=== PATIENT | female | born 1995 ===

== ENCOUNTER 2016-09-26 17:12 | Emergency (ER) | payer MEDICAID ==
[2016-09-26 17:13] VITALS: BMI 42.2
[2016-09-26 17:22] VITALS: BP 120/78; PULSE 78; RESP 18; TEMP 98.4; O2SAT 99
--- NOTE | 2016-09-26 17:54 | ED PDOC ---
HPI: Abdomen Time Seen by Provider: 09/26/16 17:37 Chief Complaint (Nursing): GI Problem Chief Complaint (Provider): abdominal pain History Per: Patient Additional Complaint(s): 21 year old female presents to ED with 2 day history of abdominal pain and vomiting. Patient states pain is mostly to upper abdomen but radiates to lower abdomen on occasion. Last year patient was and had an ultrasound and she was told that she has gallstones. Today patient states she vomited twice and has been unable to keep anything down since then. She reports chills with no known fever. Patient is currently breast feeding. Past Medical History Reviewed: Historical Data, Nursing Documentation, Vital Signs Vital Signs: Last Vital Signs Temp 98.4 F 09/26/16 17:19 Pulse 78 09/26/16 17:19 Resp 18 09/26/16 17:19 BP 120/78 09/26/16 17:19 Pulse Ox 99 09/26/16 19:50 - Medical History PMH: No Chronic Diseases - Surgical History Surgical History: No Surg Hx - Family History Family History: States: No Known Family Hx - Living Arrangements Living Arrangements: With Family - Social History Current smoker - smoking cessation education provided: No Alcohol: None Drugs: Denies - Immunization History Hx Tetanus Toxoid Vaccination: Yes Hx Influenza Vaccination: Yes Hx Pneumococcal Vaccination: No - Home Medications Home Medications: Ambulatory Orders Medication Instructions Recorded Multivit/Folic Acid/I 1 tab DAILY 11/01/15 [] Ondansetron [Zofran Odt] 4 mg PO ASDIR PRN #10 odt 09/26/16 - Allergies Allergies/Adverse Reactions: Allergies Allergy/AdvReac Type Severity Reaction Status Date / Time No Known Allergies Allergy Verified 01/29/16 12:18 Review of Systems ROS Statement: Except As Marked, All Systems Reviewed And Found Negative Constitutional: Positive for: Chills. Negative for: Fever Cardiovascular: Negative for: Chest Pain Respiratory: Negative for: Cough, Shortness of Breath, SOB with Exertion Gastrointestinal: Positive for: Nausea, Vomiting, Abdominal Pain. Negative for : Diarrhea Genitourinary Female: Negative for: Dysuria, Vaginal Discharge, Vaginal Bleeding Physical Exam - Reviewed Nursing Documentation Reviewed: Yes Vital Signs Reviewed: Yes - Physical Exam Appears: Positive for: Well, Non-toxic, No Acute Distress Skin: Negative for: Rash Eye Exam: Positive for: Normal appearance Cardiovascular/Chest: Positive for: Regular Rate, Rhythm Respiratory: Positive for: Normal Breath Sounds Gastrointestinal/Abdominal: Positive for: Bowel Sounds (normal), Tenderness ( RUQ tenderness with no rebound of guarding, no distention) Back: Negative for: L CVA Tenderness, R CVA Tenderness Extremity: Positive for: Normal ROM Neurologic/Psych: Positive for: Alert, Oriented - Laboratory Results Result Diagrams: 09/26/16 18:50 09/26/16 18:50 Urine POC: Negative Urine dip results: Positive for: Leukocyte Esterase (trace). Negative for: Blood, Nitrate, Ketones, Glucose, Bilirubin, Protein - ECG O2 Sat by Pulse Oximetry: 99 Pulse Ox Interpretation: Normal - Other Rad Abd US X-Ray: Read By Radiologist X-Ray Interpretation: see below Medical Decision Making Medical Decision Makin21 year old with vomiting and abd pain, history of gallstones Plan: CBC CMP Abd US IVF IV zofran PO tylenol for pain Urine test and dip US: LIVER: Measures 21.3 cm in sagittal dimension. Echogenic liver may be seen in setting of hepatic parenchymal disease or fatty infiltration. No focal hepatic mass identified. The main portal vein appears patent with normal directional flow. No intrahepatic bile duct dilatation. GALLBLADDER: No gallstones. No gallbladder wall thickening. Negative sonographic Bhatia's sign as assessed by the cnc service engineer. COMMON BILE DUCT: Measures 3 mm. PANCREAS: Not well visualized. RIGHT KIDNEY: Measures 10.4 x 5.4 x 5.1cm. No obstructing calculus or hydronephrosis identified. LEFT KIDNEY: Measures 12.1 x 5.4 x 4.3 cm. No obstructing calculus or hydronephrosis identified. SPLEEN: Measures approximately 10.7 cm. AORTA: Limited views appear unremarkable. IVC: Limited views appear unremarkable. OTHER FINDINGS: None. IMPRESSION: Echogenic liver may be seen in setting of hepatic parenchymal disease or fatty infiltration. Hepatomegaly. Patient still feels nauseous after zofran dose. She is drinking sips of water but feels as if she may vomit. Additional 4 mg IV Zofran given along with fluid bolus. Disposition - Clinical Impression Clinical Impression: Gastritis, Fatty liver, Abdominal pain - Patient ED Disposition Is Patient to be Admitted: Transfer of Care Counseled Patient/Family Regarding: Diagnosis, Need For Followup, Rx Given - Disposition Referrals: [facility] [Outside] Disposition: Transfer of Care Disposition Time: 20:00 Condition: STABLE Additional Instructions: Take rx meds as directed. Follow up with primary care doctor in 2-3 days. Prescriptions: Ondansetron [Zofran Odt] 4 mg PO ASDIR PRN #10 odt PRN Reason: Nausea/Vomiting Instructions: Gastritis (ED), Non-Alcoholic Fatty Liver Disease (ED), Abdominal Pain (ED), Diet for Ulcers and Gastritis (ED) Patient Signed Over To: Rosa Isela Samuel Handoff Comments: Signed out pending PO challenge and final dispo Results - Lab Results Lab Results: 09/26/16 09/26/16 09/26/16 18:55 18:50 18:50 WBC 8.4 RBC 4.84 Hgb 13.5 Hct 40.5 MCV 83.6 MCH 27.8 MCHC 33.2 RDW 14.4 Plt Count 262 MPV 9.5 Neut % (Auto) 46.1 L Lymph % (Auto) 40.7 H Centre % (Auto) 9.1 Eos % (Auto) 3.6 Baso % (Auto) 0.5 Neut # 3.9 Lymph # 3.4 Centre # 0.8 Eos # 0.3 Baso # 0.0 Sodium 141 Potassium 3.9 Chloride 104 Carbon Dioxide 23 Anion Gap 18 BUN 14 Creatinine 0.7 Est GFR ( Amer) > 60 Est GFR (Non-Af Amer) > 60 Random Glucose 84 Calcium 9.8 Total Bilirubin 0.6 AST 45 H D ALT 68 H D Alkaline Phosphatase 65 Total Protein 8.3 H Albumin 4.7 Globulin 3.6 Albumin/Globulin Ratio 1.3 Lipase 65 Urine Color Yellow Urine Clarity Clear Urine pH 6.0 Ur Specific [place] 1.024 Urine Protein 30 Urine Glucose (UA) Neg Urine Ketones Negative Urine Blood Negative Urine Nitrate Negative Urine Bilirubin Negative Urine Urobilinogen 0.2-1.0 Ur Leukocyte Esterase Trace Urine RBC (Auto) 2 Urine Microscopic WBC 3 Ur Squamous Epith Cells 3
[2016-09-26] MEDS ORDERED: Sodium Chloride 0.9% 1,000 ML IV STA (17:57)
--- NOTE | 2016-09-26 18:56 | US ---
HISTORY: gallstones, upper abd pain, vomiting, chills COMPARISON: None available. TECHNIQUE: Sonographic evaluation of the abdomen. FINDINGS: LIVER: Measures 21.3 cm in sagittal dimension. Echogenic liver may be seen in setting of hepatic parenchymal disease or fatty infiltration. No focal hepatic mass identified. The main portal vein appears patent with normal directional flow. No intrahepatic bile duct dilatation. GALLBLADDER: No gallstones. No gallbladder wall thickening. Negative sonographic Bhatia's sign as assessed by the adjunct psychology faculty member. COMMON BILE DUCT: Measures 3 mm. PANCREAS: Not well visualized. RIGHT KIDNEY: Measures 10.4 x 5.4 x 5.1cm. No obstructing calculus or hydronephrosis identified. LEFT KIDNEY: Measures 12.1 x 5.4 x 4.3 cm. No obstructing calculus or hydronephrosis identified. SPLEEN: Measures approximately 10.7 cm. AORTA: Limited views appear unremarkable. IVC: Limited views appear unremarkable. OTHER FINDINGS: None. IMPRESSION: Echogenic liver may be seen in setting of hepatic parenchymal disease or fatty infiltration. Hepatomegaly.
[2016-09-26 19:07] LABS: BASO % 0.5 % (0.0-2.0); EOS # 0.3 K/uL (0.0-0.7); EOS % 3.6 % (0.0-4.0); HEMATOCRIT 40.5 % (34.0-47.0); LYMPH # 3.4 K/uL (1.0-4.3); LYMPH % 40.7 % (20.0-40.0); MEAN CELL VOLUME 83.6 fl (81.0-99.0); MEAN CORPUSCULAR HEMOGLOBIN 27.8 pg (27.0-31.0); MEAN CORPUSCULAR HGB CONC 33.2 g/dL (33.0-37.0); MEAN PLATELET VOLUME 9.5 fl (7.2-11.7); MONO # 0.8 K/uL (0.0-0.8); MONO % 9.1 % (0.0-10.0); NEUT # 3.9 K/uL (1.8-7.0); NEUT % 46.1 % (50.0-75.0); RED CELL DISTRIBUTION WIDTH 14.4 % (11.5-14.5); WHITE BLOOD COUNT 8.4 K/uL (4.8-10.8)
[2016-09-26 19:15] LABS: RBC URINE 2 /hpf (0-3); URINE BILIRUBIN NEGATIVE (NEGATIVE); URINE BLOOD NEGATIVE (NEGATIVE); URINE COLOR YELLOW (YELLOW); URINE GLUCOSE (UA) NEG (Normal); URINE KETONE NEGATIVE (NEGATIVE); URINE LEUKOCYTE ESTERASE TRACE Leu/uL (Negative); URINE PROTEIN 30 mg/dL (NEGATIVE); URINE UROBILINOGEN 0.2-1.0 mg/dL (0.2-1.0); WBC URINE 3 /hpf (0-5)
[2016-09-26 19:27] LABS: ALB/GLOB RATIO 1.3 (1.0-2.1); ALKALINE PHOSPHATASE 65 U/L (38-126); ALT/SGPT 68 U/L (9-52); AST/SGOT 45 U/L (14-36); BILIRUBIN,TOTAL 0.6 mg/dl (0.2-1.3); BLOOD UREA NITROGEN 14 mg/dl (7-17); CALCIUM 9.8 mg/dL (8.4-10.2); CARBON DIOXIDE 23 mmol/L (22-30); CHLORIDE 104 mmol/L (98-107); GFR AFRICAN-AMERICAN > 60; GLUCOSE,RANDOM 84 mg/dL (65-105); LIPASE 65 U/L (23-300); POTASSIUM 3.9 MMOL/L (3.6-5.0); SODIUM 141 mmol/l (132-148); TOTAL PROTEIN 8.3 G/DL (6.3-8.2)
== END 2016-09-26 21:53 | disposition home or self-care (01) ==
LOC: H.ER 17:12
DX: K29.70 Gastritis, unspecified, without bleeding (principal); K76.0 Fatty (change of) liver, not elsewhere classified; R16.0 Hepatomegaly, not elsewhere classified; R11.0 Nausea

== ENCOUNTER 2017-06-15 21:07 | Emergency (ER) | payer MEDICAID ==
[2017-06-15 21:07] VITALS: BMI 42.2
[2017-06-15 21:45] VITALS: RESP 18
[2017-06-15] MEDS ORDERED: Sodium Chloride 0.9% 1,000 ML IV STA (23:08)
--- NOTE | 2017-06-15 23:14 | ED PDOC ---
HPI:Nausea, Vomiting, Diarrhea Time Seen by Provider: 06/15/17 22:42 Chief Complaint (Nursing): Abdominal Pain Chief Complaint (Provider): vomiting, diarrhea History Per: Patient History/Exam Limitations: no limitations Onset/Duration Of Symptoms: Hrs Current Symptoms Are (Timing): Still Present Additional History Per: Patient Additional Complaint(s): 21 y/o female presents with vomiting, diarrhea x 19 hours. Patient reports 4 episodes of diarrhea, and 2 episodes of vomiting. Denies fever, chest pain, shortness of breath, urinary symptoms, recent travel, sick contacts. Past Medical History Reviewed: Historical Data, Nursing Documentation, Vital Signs Vital Signs: Last Vital Signs Temp 98.6 F 06/15/17 21:43 Pulse 111 H 06/15/17 21:43 Resp 18 06/15/17 21:43 BP 135/79 06/15/17 21:43 Pulse Ox 100 06/15/17 21:43 - Medical History PMH: No Chronic Diseases - Surgical History Surgical History: No Surg Hx - Family History Family History: States: Unknown Family Hx - Immunization History Hx Tetanus Toxoid Vaccination: Yes Hx Influenza Vaccination: Yes Hx Pneumococcal Vaccination: No - Home Medications Home Medications: Ambulatory Orders Medication Instructions Recorded Multivit/Folic Acid/I 1 tab DAILY 11/01/15 [] Ondansetron [Zofran Odt] 4 mg PO ASDIR PRN #10 odt 09/26/16 Dicyclomine [Bentyl] 20 mg PO TID PRN #15 tab 06/16/17 Ondansetron ODT [Zofran ODT] 4 mg PO Q8 PRN #10 odt 06/16/17 - Allergies Allergies/Adverse Reactions: Allergies Allergy/AdvReac Type Severity Reaction Status Date / Time No Known Allergies Allergy Verified 01/29/16 12:18 Review of Systems ROS Statement: Except As Marked, All Systems Reviewed And Found Negative Gastrointestinal: Positive for: Nausea, Vomiting, Abdominal Pain, Diarrhea Physical Exam - Reviewed Nursing Documentation Reviewed: Yes Vital Signs Reviewed: Yes - Physical Exam Appears: Positive for: Well, Non-toxic, No Acute Distress Head Exam: Positive for: ATRAUMATIC, NORMAL INSPECTION, NORMOCEPHALIC Skin: Positive for: Normal Color Eye Exam: Positive for: Normal appearance ENT: Positive for: Normal ENT Inspection Cardiovascular/Chest: Positive for: Regular Rate, Rhythm Respiratory: Positive for: Normal Breath Sounds Gastrointestinal/Abdominal: Positive for: Bowel Sounds, Soft, Tenderness ( diffuse discomfort to palpation). Negative for: Distended, Guarding, Rebound Back: Positive for: Normal Inspection Extremity: Positive for: Normal ROM Neurologic/Psych: Positive for: Alert, Oriented - Laboratory Results Result Diagrams: 06/15/17 23:23 06/15/17 23:23 - ECG O2 Sat by Pulse Oximetry: 100 - Progress ED Course And Treament: labs, urine, CT abd/pelvis, IV fluids, IV zofran, PO bentyl EXAM: CT Abdomen and Pelvis With Intravenous Contrast CLINICAL HISTORY: 21 years old, female; Pain; Abdominal pain; Generalized; Additional info: Abd pain, vomiting, diarrhea TECHNIQUE: Axial computed tomography images of the abdomen and pelvis with intravenous contrast. All CT scans at this facility use one or more dose reduction techniques, viz.: automated exposure control; ma/kV adjustment per patient size (including targeted exams where dose is matched to indication; i.e. head); or iterative reconstruction technique. 657 images are submitted. Oral contrast was administered. Coronal and sagittal reformatted images were created and reviewed. CONTRAST: 95 mL of [id number] administered intravenously. COMPARISON: No relevant prior studies available. FINDINGS: Lower thorax: Small hiatal hernia. ABDOMEN: Liver: Enlarged fatty liver measuring 24 cm.. Gallbladder and bile ducts: Unremarkable. No ductal dilation. Pancreas: Unremarkable. No mass. No ductal dilation. Spleen: Left upper quadrant splenules. The spleen measures 13 cm. Adrenals: Unremarkable. No mass. Kidneys and ureters: Unremarkable. No solid mass. No hydronephrosis. Stomach and bowel: Decompressed sigmoid colon with diverticulosis and pericolic indistinctness. The left lower quadrant colon is adherent to the lateral conal fascia seen on image 54 series 601. Correlation with clinical data is recommended early acute diverticulitis is clinically suspected. Diverticulosis. Nonspecific thickening of the terminal ileum likely due to underdistention. Contrast transited into the colon. No focal obstruction is identified. Appendix: Normal appendix. PELVIS: Bladder: Partially decompressed bladder with bladder wall thickening. Correlation with urinalysis is recommended only if clinical cystitis is suspected. Reproductive: High riding ovaries with bilateral ovarian follicles seen on image 129 series 3. Uterus is seen. Endometrial stripe thickening and/or fluid seen on image 154 series 3. ABDOMEN and PELVIS: Intraperitoneal space: Unremarkable. No free air. No significant fluid collection. Bones/joints: No acute fracture. No dislocation. Soft tissues: There is a fat-containing umbilical hernia. Vasculature: Unremarkable. No abdominal aortic aneurysm. Lymph nodes: Bilateral groin lymph nodes. Multiple mesenteric lymph nodes. Subcentimeter paraaortic retroperitoneal lymph nodes. IMPRESSION: 1. Decompressed sigmoid colon with diverticulosis and pericolic indistinctness. No evidence for perforation or abscess. Correlation with clinical data is recommended early acute diverticulitis is clinically suspected. Patient educated on findings, discharged with rx Zofran, Bentyl. Advised fluids. Cabins diet. Follow up PMD 2-3 days. Return precautions given. Disposition - Clinical Impression Clinical Impression: Gastroenteritis - Patient ED Disposition Is Patient to be Admitted: No Counseled Patient/Family Regarding: Studies Performed, Diagnosis, Need For Followup, Rx Given - Disposition Referrals: [facility] [Outside] Disposition: Routine/Home Disposition Time: 04:47 Condition: IMPROVED Prescriptions: Dicyclomine [Bentyl] 20 mg PO TID PRN #15 tab PRN Reason: Pain, Mild (1-3) Ondansetron ODT [Zofran ODT] 4 mg PO Q8 PRN #10 odt PRN Reason: Nausea/Vomiting Instructions: Gastroenteritis (ED) Forms: [employer] ([place])
[2017-06-15 23:28] LABS: BASO % 0.3 % (0.0-2.0); EOS # 0.3 K/uL (0.0-0.7); EOS % 2.2 % (0.0-4.0); HEMOGLOBIN 14.9 g/dL (12.0-16.0); LYMPH # 1.7 K/uL (1.0-4.3); LYMPH % 14.5 % (20.0-40.0); MEAN CELL VOLUME 85.3 fl (81.0-99.0); MEAN CORPUSCULAR HEMOGLOBIN 28.2 pg (27.0-31.0); MEAN CORPUSCULAR HGB CONC 33.1 g/dL (33.0-37.0); MEAN PLATELET VOLUME 10.1 fl (7.2-11.7); MONO # 0.8 K/uL (0.0-0.8); MONO % 6.8 % (0.0-10.0); NEUT # 9.1 K/uL (1.8-7.0); NEUT % 76.2 % (50.0-75.0); NRBC % 0.1 % (0.0-0.0); RBC 5.27 Mil/uL (3.80-5.20); RED CELL DISTRIBUTION WIDTH 12.8 % (11.5-14.5)
[2017-06-15 23:36] LABS: ALBUMIN 4.9 g/dL (3.5-5.0); ALT/SGPT 152 U/L (9-52); AST/SGOT 101 U/L (14-36); BLOOD UREA NITROGEN 15 mg/dl (7-17); CALCIUM 9.6 mg/dL (8.4-10.2); GFR AFRICAN-AMERICAN > 60; GFR NON-AFRICAN AMERICAN > 60; LIPASE 61 U/L (23-300)
[2017-06-15 23:38] LABS: ALB/GLOB RATIO 1.4 (1.0-2.1)
[2017-06-16] MEDS ORDERED: Iohexol 240 (50 ml) PO ONE (00:16)
[2017-06-16] MEDS ORDERED: Iohexol 240 (50 ml) ONE (01:49)
[2017-06-16] MEDS ORDERED: Sodium Chloride 0.9% 50 ML IV ONE (03:34)
[2017-06-16] MEDS ORDERED: Iohexol 300 100 ML IJ ONE (03:34)
--- NOTE | 2017-06-16 04:33 | CT ---
EXAM: CT Abdomen and Pelvis With Intravenous Contrast CLINICAL HISTORY: 21 years old, female; Pain; Abdominal pain; Generalized; Additional info: Abd pain, vomiting, diarrhea TECHNIQUE: Axial computed tomography images of the abdomen and pelvis with intravenous contrast. All CT scans at this facility use one or more dose reduction techniques, viz.: automated exposure control; ma/kV adjustment per patient size (including targeted exams where dose is matched to indication; i.e. head); or iterative reconstruction technique. 657 images are submitted. Oral contrast was administered. Coronal and sagittal reformatted images were created and reviewed. CONTRAST: 95 mL of [id number] administered intravenously. COMPARISON: No relevant prior studies available. FINDINGS: Lower thorax: Small hiatal hernia. ABDOMEN: Liver: Enlarged fatty liver measuring 24 cm.. Gallbladder and bile ducts: Unremarkable. No ductal dilation. Pancreas: Unremarkable. No mass. No ductal dilation. Spleen: Left upper quadrant splenules. The spleen measures 13 cm. Adrenals: Unremarkable. No mass. Kidneys and ureters: Unremarkable. No solid mass. No hydronephrosis. Stomach and bowel: Decompressed sigmoid colon with diverticulosis and pericolic indistinctness. The left lower quadrant colon is adherent to the lateral conal fascia seen on image 54 series 601. Correlation with clinical data is recommended early acute diverticulitis is clinically suspected. Diverticulosis. Nonspecific thickening of the terminal ileum likely due to underdistention. Contrast transited into the colon. No focal obstruction is identified. Appendix: Normal appendix. PELVIS: Bladder: Partially decompressed bladder with bladder wall thickening. Correlation with urinalysis is recommended only if clinical cystitis is suspected. Reproductive: High riding ovaries with bilateral ovarian follicles seen on image 129 series 3. Uterus is seen. Endometrial stripe thickening and/or fluid seen on image 154 series 3. ABDOMEN and PELVIS: Intraperitoneal space: Unremarkable. No free air. No significant fluid collection. Bones/joints: No acute fracture. No dislocation. Soft tissues: There is a fat-containing umbilical hernia. Vasculature: Unremarkable. No abdominal aortic aneurysm. Lymph nodes: Bilateral groin lymph nodes. Multiple mesenteric lymph nodes. Subcentimeter para-aortic retroperitoneal lymph nodes. IMPRESSION: 1. Decompressed sigmoid colon with diverticulosis and pericolic indistinctness. No evidence for perforation or abscess. Correlation with clinical data is recommended early acute diverticulitis is clinically suspected.
[2017-06-16 05:15] VITALS: BP 120/72; PULSE 92; TEMP 98.5; O2SAT 97
== END 2017-06-16 05:30 | disposition home or self-care (01) ==
LOC: H.ER 21:07
DX: K52.9 Noninfective gastroenteritis and colitis, unspecified (principal)
CPT/HCPCS: 74177; 80053; 81025; 83690; 85025; 96374; 99284; J2405; J7040; Q9966; Q9967